=== PATIENT | female | born 2000 | race Hispanic/Latino ===

== ENCOUNTER 2024-07-03 20:54 | Emergency (ER) | payer OTHER, SELFPAY ==
[2024-07-03] VITALS (8 sets, daily range): BP systolic 106–145; BP diastolic 71–101; PULSE 89–104; RESP 15–23; TEMP 37.2; O2SAT 92–100; BMI 21.9
--- NOTE | 2024-07-03 21:03 | EKG_ITS ---
[address] [address] Test Date: 2024-07-03 Pat Name: Batsheva Almaguer Department: Room: Gender: Female [employer]ister: EMMETT : 2000 Requested By: Order Number: [id number] Reading MD: Saad Caldwell Measurements Intervals [place] Rate: 96 P: 73 AR: 162 QRS: 82 QRSD: 92 T: 25 QT: 338 QTc: 427 Interpretive Statements Normal sinus rhythm with sinus arrhythmia Nonspecific T wave abnormality Electronically Signed On 07-04-2024 14:38:26 PDT by Saad Caldwell
--- NOTE | 2024-07-03 21:07 | DI.RAD.S_ITS ---
PROCEDURE: XR CHEST 1V INDICATIONS: chest pain TECHNIQUE: One view of the chest was acquired. COMPARISON: [facility] ([place]), CR, XR CHEST 2V, 07/03/2024, 14:38. FINDINGS AND IMPRESSION: No dense airspace disease or pleural effusion on this single view study. Normal heart size. Unremarkable osseous structures. Dictated by: Thom Hernandez M.D. on 07/03/2024 at 21:28 Approved by: Thom Hernandez M.D. on 07/03/2024 at 21:28
[2024-07-03 21:19] LABS: Add Manual Diff / Slide Review NO; Basophils Absolute Auto 0 /uL (0-100); Basophils Percent Auto 0.7 % (0-2); Eosinophils Absolute Auto 200 /uL (0-450); Eosinophils Percent Auto 3.5 % (2-4); Hematocrit 41.9 % (36-46); Hemoglobin 14.1 g/dL (12.0-16.0); Lymphocytes Absolute Auto 2100 /uL (1100-4500); Lymphocytes Percent Auto 39.3 % (25-40); Mean Corpuscular HGB Conc 33.6 % (30-36); Mean Corpuscular Hemoglobin 31.8 PG (26-34); Mean Corpuscular Volume 94.7 fL (80-100); Monocytes Absolute Auto 600 /uL (0-900); Monocytes Percent Auto 10.5 % (3-14); Neutrophils Absolute Auto 2500 /uL (1500-7000); Platelet Count 181 X10^3/uL (150-400); Red Blood Cell Count 4.42 X10^6/uL (4.0-5.2); Red Cell Distribution Width 12.1 % (11.6-14.8); White Blood Cell Count 5.4 X10^3/uL (4.5-11.0)
[2024-07-03 21:30] LABS: Alanine Aminotransferase 21 IU/L (<35); Albumin 4.9 g/dL (3.5-5.0); Albumin Globulin Ratio 1.4 (1.0-2.8); Alkaline Phosphatase 52 U/L (38-126); Aspartate Aminotransferase 22 IU/L (14-36); BUN Creatinine Ratio 11.1 (6-22); Bilirubin Total 0.6 mg/dL (0.2-1.3); Blood Urea Nitrogen 8 mg/dL (7-17); Calcium 10.1 mg/dL (8.4-10.2); Carbon Dioxide 22 mmol/L (22-32); Chloride 107 mmol/L (98-107); Creatine Kinase 33 U/L (30-135); Estimated Glomerular Filt Rate > 60 mL/min (>60); Globulin 3.4 g/dL (1.7-4.1); Glucose 97 mg/dL (70-100); HEMOLYSIS < 15 (0-50); Lipase 65 U/L (23-300); Potassium 3.4 mmol/L (3.4-5.1); Sodium 141 mmol/L (137-145); Total Protein 8.3 g/dL (6.3-8.2)
[2024-07-03 21:35] LABS: Prothrombin Time 11.6 SECONDS (9.4-12.5)
[2024-07-03 21:38] LABS: PTT Partial Thromboplastin Tim 29 SECONDS (25.1-36.5)
[2024-07-03 21:42] LABS: NT-proBNP (BNP-Adult 18+) < 20 pg/mL (<125); Troponin I < 0.012 ng/mL (0.01-0.034)
[2024-07-03 22:00] LABS: D Dimer < 215 ng/ml (<500)
--- NOTE | 2024-07-03 22:44 | ED.CHESTPAIN ---
HPI - Chest Pain General Chief Complaint: Chest Pain Stated Complaint: Lung and chest pain; COVID19 positive Time Seen by Provider: 07/03/24 21:39 Source: patient, RN notes reviewed and old records reviewed Mode of arrival: Ambulatory Limitations: no limitations Limitations: no limitations History of Present Illness HPI narrative: 24-year-old female history of asthma, anxiety who presents with complaint of chest pain and shortness of breath tested positive for COVID on the 25 of June. Patient states she started to have some fevers, nausea vomiting chills chest pain and shortness of breath improved but the in his sort of returned in terms of chest pain and shortness of breath. She has a history of asthma she has been using her inhaler. She states it helps with the cough but not the chest discomfort. She has not had any productive cough. She was not had fevers for several days. She has had some nausea today but no vomiting. No syncope. No other GI or urinary symptoms. No new swelling of extremities. Patient is on bupropion, topiramate, loratadine and mini pill. No prior surgeries. Reports allergies to Benadryl cough medicines. No tobacco, alcohol or recreational drugs. Notes her mother had a blood clot was on oral contraceptives at that time has not had any more of the patient is aware of. Family history of hypertension no cardiac family history otherwise noted. Patient was seen at the clinic on a [facility] and sent for evaluation. Related Data Home Medications Medication Instructions Recorded Confirmed bupropion HCl 300 mg 24 hr tablet, 300 mg PO QAM 01/28/24 07/03/24 extended release (Wellbutrin XL) esomeprazole magnesium 20 mg 20 mg PO DAILY 01/28/24 07/03/24 capsule,delayed release loratadine 10 mg tablet (Allergy 10 mg PO DAILY 01/28/24 07/03/24 Relief (loratadine)) rimegepant 75 mg disintegrating 75 mg PO ONCE PRN 01/28/24 07/03/24 tablet (Nurtec ODT) topiramate 50 mg tablet (Topamax) 50 mg PO BEDTIME 01/28/24 07/03/24 norethindrone (contraceptive) 0.35 0.35 mg PO 07/03/24 07/03/24 mg tablet Previous Rx's Medication Instructions Recorded lidocaine HCl 4 % topical gel See Rx Instructions topical BID 01/28/24 #75 mL ondansetron 4 mg disintegrating 4 mg PO Q8H PRN nausea and 06/29/24 tablet vomiting #20 tabs prednisone 20 mg tablet 40 mg (2 x 20 mg) PO DAILY 5 days 07/03/24 #10 tabs Allergies Allergy/AdvReac Type Severity Reaction Status Date / Time guaifenesin [From Mucinex] AdvReac Mild Numbness Verified 07/03/24 14:04 pseudoephedrine AdvReac Mild Confusion Verified 07/03/24 14:04 [From Sudafed] Review of Systems Review of Systems ROS Unobtainable: All systems reviewed & are unremarkable except as noted in HPI and below Patient History Social History Smoking Status: Never smoker Smoking Status: Never smoker Exam Narrative Exam Narrative: GENERAL: Alert and oriented x three, thin female in mild distress HEENT: Head normocephalic, atraumatic, EOMI, pupils reactive, face symmetric, moist mucous membranes NECK: Supple, full range of motion CARDIOVASCULAR: Regular rate and rhythm without murmurs, rubs or gallops. RESPIRATORY: Breath sounds equal bilaterally, no wheezes rales or rhonchi. ABDOMEN: Soft, nontender. Normoactive bowel sounds all 4 quadrants. No guarding or rebound, rigidity, no mass : No CVA tenderness EXTREMITIES: Normal range of motion, no clubbing or edema. Neurovascularly intact NEUROLOGICAL: Cranial nerves II through XII grossly intact. Moving all extremities SKIN: Warm, dry, no petechiae, no rashes or lesions. Initial Vital Signs Initial Vital Signs: Vital Signs Temperature 98.9 F 07/03/24 21:01 Pulse Rate 102 H 07/03/24 21:01 Respiratory Rate 16 07/03/24 21:01 Blood Pressure 145/101 H 07/03/24 21:01 Pulse Oximetry 99 07/03/24 21:01 Oxygen Delivery Method Room Air 07/03/24 21:01 Scores HEART Score Heart Score history: Slightly Suspicious Heart Score EKG: Non-Specific repolarization disturbance Heart Score Age: < 45 years old Heart Score risk factors: No known risk factors Heart Score troponin: < or = to normal limit Heart Score Total: 1 PERC Score Age greater than or equal to 50 years: No Heart rate greater than or equal to 100 bpm: Yes Room Air O2 Sat less than 95%: No Unilateral leg swelling: No Recent trauma or surgery: No Hemoptysis: No Prior PE or DVT: No Hormone Use: Yes Total PERC Score: 2 Course Orders Ordered: ED Orders 07/03/24 21:03 EKG-12 Lead Stat 07/03/24 21:07 XR chest 1V Stat EKG-12 Lead Stat 07/03/24 21:12 Complete Blood Count AUTO DIFF Stat Comprehensive Metabolic Panel Stat Lipase Stat Magnesium Stat NT-proBNP (BNP-Adult 18+) Stat PTT Partial Thromboplastin Carlos Stat Prothrombin Time INR Stat Troponin & CK Cardiac Panel Stat 07/03/24 21:21 D Dimer Stat 07/03/24 23:08 CT angio chest PE protocol Stat Discontinued Medications Aspirin (Aspirin 81 Mg Chew Tab) 324 mg PO NOW ONE Stop: 07/03/24 21:08 Last Admin: 07/03/24 22:20 Dose: Not Given Documented By: EMILIANO Vital Signs Vital signs: Vital Signs - 8 hr 07/03/24 21:01 07/03/24 21:40 07/03/24 21:41 Temperature 98.9 F Pulse Rate 102 H 99 H 100 H Respiratory Rate 16 15 15 Blood Pressure 145/101 H Pulse Oximetry 99 92 99 Oxygen Delivery Method Room Air 07/03/24 21:41 07/03/24 22:00 07/03/24 22:00 Temperature Pulse Rate 100 H Respiratory Rate 16 Blood Pressure 118/83 119/75 Pulse Oximetry 99 Oxygen Delivery Method 07/03/24 22:30 07/03/24 22:30 07/03/24 23:00 Temperature Pulse Rate 89 103 H Respiratory Rate 22 23 Blood Pressure 106/71 Pulse Oximetry 99 99 Oxygen Delivery Method 07/03/24 23:00 07/03/24 23:31 07/03/24 23:51 Temperature Pulse Rate 104 H 100 H Respiratory Rate 16 18 20 Blood Pressure 127/86 Pulse Oximetry 95 100 Oxygen Delivery Method 07/03/24 23:51 Temperature Pulse Rate 95 H Respiratory Rate Blood Pressure 113/77 Pulse Oximetry Oxygen Delivery Method MDM - Chest Pain Lab Data 07/03/24 21:12 07/03/24 21:12 Labs: Lab Results 07/03/24 07/03/24 Range/Units 21:12 21:21 WBC 5.4 (4.5-11.0) X10^3/uL RBC 4.42 (4.0-5.2) X10^6/uL Hgb 14.1 (12.0-16.0) g/dL Hct 41.9 (36-46) % MCV 94.7 (80-100) fL MCH 31.8 (26-34) PG MCHC 33.6 (30-36) % RDW 12.1 (11.6-14.8) % Plt Count 181 (150-400) X10^3/uL Neut % (Auto) 46.0 L (50-75) % Lymph % (Auto) 39.3 (25-40) % [place] % (Auto) 10.5 (3-14) % Eos % (Auto) 3.5 (2-4) % Baso % (Auto) 0.7 (0-2) % Neut # (Auto) 2500 (2176-9569) /uL Lymph # (Auto) 2100 (0998-9848) /uL [place] # (Auto) 600 (0-900) /uL Eos # (Auto) 200 (0-450) /uL Baso # (Auto) 0 (0-100) /uL PT 11.6 (9.4-12.5) SECONDS INR 1.0 (0.9-1.3) APTT 29 (25.1-36.5) SECONDS D-Dimer < 215 (<500) ng/ml Sodium 141 (137-145) mmol/L Potassium 3.4 (3.4-5.1) mmol/L Chloride 107 (98-107) mmol/L Carbon Dioxide 22 (22-32) mmol/L BUN 8 (7-17) mg/dL Creatinine 0.72 (0.52-1.04) mg/dL Estimated GFR > 60 (>60) mL/min BUN/Creatinine Ratio 11.1 (6-22) Glucose 97 (70-100) mg/dL Calcium 10.1 (8.4-10.2) mg/dL Magnesium 2.0 (1.6-2.3) mg/dL Total Bilirubin 0.6 (0.2-1.3) mg/dL AST 22 (14-36) IU/L ALT 21 (<35) IU/L Alkaline Phosphatase 52 (38-126) U/L Total Creatine Kinase 33 (30-135) U/L Troponin I < 0.012 (0.01-0.034) ng/mL NT-Pro-B Natriuret Pep < 20 (<125) pg/mL Total Protein 8.3 H (6.3-8.2) g/dL Albumin 4.9 (3.5-5.0) g/dL Globulin 3.4 (1.7-4.1) g/dL Albumin/Globulin Ratio 1.4 (1.0-2.8) Lipase 65 (23-300) U/L ECG Data Attestation: I personally reviewed and interpreted this ECG as follows: Prior ECG tracings: not available for review Interpretation: Sinus rhythm with sinus arrhythmia rate of 96, [place] 162 QRS of 92 QTC of 427, nonspecific change. No prior for comparison. MDM Narrative Medical decision making narrative: Labs show normal white count hemoglobin and platelets low neutrophils, coags are negative D-dimer is less than 215, electrolytes are appropriate BUN creatinine are normal glucose is 97 LFTs are negative troponins less than 0.012 with a BNP of less than 20 and a lipase is 65 Chest x-ray is negative EKG shows sinus rhythm sinus arrhythmia nonspecific change. No priors for comparison. CT PE protocol shows no acute pulmonary embolism, no airspace disease or pleural effusion. 24-year-old female chest discomfort and shortness of breath has a recent COVID infection positive 3 to 2024. Suspect this is likely the source of patient's symptoms but does also has a family history of blood clot with the mother, patient is on mini pill rather than estrogen contraceptive. After discussion of risks versus benefits and negative D-dimer and PERC score is 2 with family history. Patient also has a little bit more remotely and would have difficulty accessing care for reevaluation. Patient elects to obtain CT PE protocol. This is negative patient is felt appropriate for discharge home. She was not wheezing on exam for myself but had albuterol treatment prior to coming into the emergency department we will give a short course of oral prednisone has a recent COVID infection maybe flaring her asthma. Patient defers any steroids tonight so will send prescription. Discharge Plan Departure Patient Disposition: Home Clinical Impression: Chest pain Instructions: DI for Chest Pain Activity Restrictions/Additional Instructions: I suspect your chest pain is related to your recent COVID infection. Continue with the ibuprofen up to 600 mg every 6 hours and/or acetaminophen up to a 1000 mg every 6 hours as needed for pain. You may benefit from having some oral steroid if you are having a flare of your asthma. Prescription was sent to [facility] Please return for new or worsening symptoms, passing out, new or worsening chest pain, increasing shortness of breath, coughing up blood, new swelling of your extremities, persistent vomiting or other new or concerning changes. Prescriptions: New prednisone 20 mg tablet 40 mg PO DAILY 5 Days Qty: 10 0RF No Action bupropion HCl [Wellbutrin XL] 300 mg tablet extended release 24 hr 300 mg PO QAM loratadine [Allergy Relief (loratadine)] 10 mg tablet 10 mg PO DAILY topiramate [Topamax] 50 mg tablet 50 mg PO BEDTIME esomeprazole magnesium 20 mg capsule,delayed release(DR/EC) 20 mg PO DAILY Nurtec ODT 75 mg tablet,disintegrating 75 mg PO ONCE PRN Rx Instructions: as a single dose lidocaine HCl 4 % gel See Rx Instructions topical BID Qty: 75 0RF Rx Instructions: Place 3-4 drops of lidocaine in the left ear canal every 2 hours as needed for ear pain. ondansetron 4 mg tablet,disintegrating 4 mg PO Q8H PRN (Reason: nausea and vomiting) Qty: 20 0RF norethindrone (contraceptive) 0.35 mg tablet 0.35 mg PO Patient Comments: [NO ORIGINAL SIG] Referrals: Miscellaneous,Doctor, MD [Primary Care Provider] - Stand Alone Forms: Patient Portal/API/Survey
--- NOTE | 2024-07-03 23:08 | DI.CT.S_ITS ---
PROCEDURE: CT ANGIO CHEST PE PROTOCOL INDICATIONS: chest pain, recent covid infection, fhx blood clot TECHNIQUE: After the administration of intravenous contrast, 2 mm thick sections acquired from the pulmonary apices to the posterior costophrenic angles. 3-dimensional maximum intensity projection (MIP) coronal and sagittal reformats were then acquired through the thorax. For radiation dose reduction, the following was used: automated exposure control, adjustment of mA and/or kV according to patient size. COMPARISON: [facility], CR, XR CHEST 1V, 07/03/2024, 21:06. FINDINGS: Image quality: Diagnostic Lungs and pleura: No airspace consolidation or pleural effusion. No overtly suspicious focal pulmonary nodule. Mediastinum, heart, and esophagus: No acute pulmonary embolism. Normal heart size. No pathologic lymph nodes by size criteria. Unremarkable esophagus on limited CT evaluation Chest wall and thyroid: Unremarkable Upper abdomen: No gross abnormality on these arterial phase images Bones: No aggressive appearing focal osseous abnormality. IMPRESSION: No acute pulmonary embolism. No airspace disease or pleural effusion. Dictated by: Thom Hernandez M.D. on 07/03/2024 at 23:45 Approved by: Thom Hernandez M.D. on 07/03/2024 at 23:48
--- NOTE | 2024-07-03 23:11 | PC.NURSE ---
Patient used her call light and I responded. She reports slightly higher different chest pain. She point above her mid sternum and reports 3 episodes of sharp chest pain that have resolved now. Dr. Nagy informed and aware.
== END 2024-07-04 00:01 | disposition home or self-care (01) ==
PROVIDERS: Emergency Provider Emergency Medicine
DX: R07.9 Chest pain, unspecified (principal); R06.02 Shortness of breath; Z86.16 Personal history of COVID-19; R11.2 Nausea with vomiting, unspecified; I49.8 Other specified cardiac arrhythmias
CPT/HCPCS: 36415; 71045; 71275; 80053; 82550; 83690; 83735; 83880; 84484; 85025; 85379; 85610; 85730; 93005; 99283; 99284; Q9967

== ENCOUNTER → 2024-09-06 13:10 | Outpatient (CLI) | payer OTHER, SELFPAY ==
[2024-09-06 18:56] LABS: Add Manual Diff / Slide Review NO; Basophils Absolute Auto 0 /uL (0-100); Basophils Percent Auto 1.1 % (0-2); Eosinophils Absolute Auto 100 /uL (0-450); Eosinophils Percent Auto 2.5 % (2-4); Hematocrit 39.1 % (36-46); Hemoglobin 13.4 g/dL (12.0-16.0); Lymphocytes Absolute Auto 1500 /uL (1100-4500); Lymphocytes Percent Auto 40.8 % (25-40); Mean Corpuscular HGB Conc 34.3 % (30-36); Mean Corpuscular Hemoglobin 32.9 PG (26-34); Mean Corpuscular Volume 95.9 fL (80-100); Monocytes Absolute Auto 400 /uL (0-900); Neutrophils Absolute Auto 1700 /uL (1500-7000); Neutrophils Percent Auto 45.6 % (50-75); Platelet Count 162 X10^3/uL (150-400); Red Blood Cell Count 4.08 X10^6/uL (4.0-5.2); Red Cell Distribution Width 11.6 % (11.6-14.8); White Blood Cell Count 3.8 X10^3/uL (4.5-11.0)
[2024-09-06 19:03] LABS: HEMOLYSIS < 15 (0-50); Iron 151 ug/dL (37-170)
[2024-09-06 19:05] LABS: HEMOLYSIS < 15 (0-50)
[2024-09-06 19:11] LABS: Alanine Aminotransferase 13 IU/L (<35); Albumin 4.6 g/dL (3.5-5.0); Albumin Globulin Ratio 1.8 (1.0-2.8); Alkaline Phosphatase 44 U/L (38-126); Aspartate Aminotransferase 19 IU/L (14-36); BUN Creatinine Ratio 12.6 (6-22); Bilirubin Total 0.8 mg/dL (0.2-1.3); Blood Urea Nitrogen 12 mg/dL (7-17); C-Reactive Protein Quant < 0.5 mg/dL (<1.0); Calcium 9.3 mg/dL (8.4-10.2); Carbon Dioxide 20 mmol/L (22-32); Chloride 110 mmol/L (98-107); Estimated Glomerular Filt Rate > 60 mL/min (>60); Globulin 2.5 g/dL (1.7-4.1); Glucose 88 mg/dL (70-99); Potassium 3.8 mmol/L (3.4-5.1); Sodium 139 mmol/L (137-145); Total Protein 7.1 g/dL (6.3-8.2)
[2024-09-06 19:20] LABS: Percent Iron Saturation 47 % (15-50); Total Iron Binding Capacity 323 ug/dL (265-497); Transferrin 266 mg/dL (206-381)
[2024-09-06 19:23] LABS: Vitamin D 25 Hydroxy (D3) 32.4 ng/mL (30.0-100.0)
[2024-09-06 19:34] LABS: Erythrocyte Sedimentation Rate 5 MM/HR (0-20)
[2024-09-06 19:36] LABS: Thyroid Stimulating Hormone 0.815 uIU/mL (0.47-4.68)
[2024-09-06 19:47] LABS: Ferritin 21 ng/mL (6-137)
[2024-09-06 19:58] LABS: Vitamin B12 635 pg/mL (239-931)
== END ==
PROVIDERS: PCP Family Medicine; Visit Provider Family Medicine
DX: R53.83 Other fatigue (principal); L29.9 Pruritus, unspecified; N80.9 Endometriosis, unspecified
CPT/HCPCS: 80053; 82306; 82607; 82728; 83540; 83550; 84443; 85025; 85651; 86140

== ENCOUNTER → 2025-02-06 11:26 | Outpatient (CLI) | payer OTHER, SELFPAY ==
[2025-02-06 18:54] LABS: Hematocrit 34.3 % (36-46); Hemoglobin 11.4 g/dL (12.0-16.0); Mean Corpuscular HGB Conc 33.2 % (30-36); Mean Corpuscular Hemoglobin 30.4 PG (26-34); Mean Corpuscular Volume 91.5 fL (80-100); Platelet Count 163 X10^3/uL (150-400)
[2025-02-06 19:16] LABS: HEMOLYSIS < 15 (0-50); Iron 115 ug/dL (37-170)
[2025-02-06 19:31] LABS: Percent Iron Saturation 33 % (15-50); Total Iron Binding Capacity 351 ug/dL (265-497); Transferrin 294 mg/dL (206-381)
[2025-02-06 19:41] LABS: HCG Quantitative /Beta subunit < 2.39 mIU/mL
[2025-02-06 19:50] LABS: Thyroid Stimulating Hormone 1.64 uIU/mL (0.47-4.68)
[2025-02-06 19:58] LABS: Ferritin 8 ng/mL (6-137)
[2025-02-09 15:09] LABS: ANA Screen, IFA Negative (.)
== END ==
PROVIDERS: PCP Family Medicine; Visit Provider Family Medicine
DX: M25.50 Pain in unspecified joint (principal); G43.909 Migraine, unspecified, not intractable, without status migrainosus; R53.83 Other fatigue; R79.0 Abnormal level of blood mineral; N92.0 Excessive and frequent menstruation with regular cycle; N80.9 Endometriosis, unspecified
CPT/HCPCS: 82728; 83540; 83550; 84443; 84702; 85027; 85651; 86038; 86140; 86200; 86430

== ENCOUNTER → 2025-03-20 15:15 | Outpatient (CLI) | payer OTHER, SELFPAY ==
--- NOTE | 2025-03-20 15:16 | DI.US.S_ITS ---
PROCEDURE: US PELVIC COMPLETE INDICATIONS: pelvic pain, menorrhagia TECHNIQUE: Real-time scanning was performed of the pelvic organs, with image documentation. Additional endovaginal scanning was necessary due to incomplete visualization of the adnexal and endometrial structures by transabdominal scanning. COMPARISON: None. FINDINGS: Uterus: Uterus is anteverted and normal in size at 7.4 x 3.5 x 5 x 1 cm. The myometrium is homogeneous. The endometrium measures 7 mm combined thickness. Ovaries: The right ovary measures 5 x 5.4 x 4.1 cm, with a calculated ovarian volume of 57 cc. Within the right ovary, there is a complex cyst without abnormal vascularity measuring 4.8 x 3.9 x 4.7 cm. The left ovary measures 2 x 2.7 x 1.5 cm, with a calculated ovarian volume of 4.4 cc. Less than 12 follicles can be seen in each ovary. No adnexal masses are seen. Normal appearing arterial waveforms are confirmed to each ovary. Other: No pathologic free abdominal or pelvic fluid. IMPRESSION: Complex cyst seen involving the right ovary which is most likely related to a hemorrhagic cyst. - If it would be clinically appropriate, a followup pelvic ultrasound could be considered in 6 weeks to assure resolution/ improvement. We strive to produce accurate, complete, and clear reports of imaging services. To assist us in improving patient care, this report was composed using standard report templates and voice recognition software. Therefore, it may contain abnormal punctuation, insertions and/or omissions. Occasional wrong-word or sound-alike substitutions may occur. Though we review the report and make efforts to correct it, we do recommend that the report be read carefully in proper context to recognize any text inaccuracies. Dictated by: Tree Zapata M.D. on 03/20/2025 at 15:06 Approved by: Tree Zapata M.D. on 03/20/2025 at 15:07
== END ==
LOC: US 15:16
PROVIDERS: PCP Family Medicine; Referring Provider Family Medicine; Visit Provider Family Medicine
DX: R10.20 Pelvic and perineal pain unspecified side (principal); N92.0 Excessive and frequent menstruation with regular cycle; N83.201 Unspecified ovarian cyst, right side
CPT/HCPCS: 76830; 76856; 93975

== ENCOUNTER → 2025-04-24 14:06 | Outpatient (CLI) | payer OTHER, SELFPAY ==
[2025-04-24 18:33] LABS: Hematocrit 37.2 % (36-46); Hemoglobin 12.0 g/dL (12.0-16.0)
[2025-04-24 19:17] LABS: Ferritin 7 ng/mL (6-137)
== END ==
PROVIDERS: PCP Family Medicine; Visit Provider Family Medicine
DX: D64.9 Anemia, unspecified (principal)
CPT/HCPCS: 82728; 85014; 85018